=== PATIENT | male | born 1995 | race American Indian/Alaskan Native ===

== ENCOUNTER 2018-12-21 19:07 | Emergency (ER) | payer BC ==
[2018-12-21 19:15] VITALS: PULSE 68; RESP 16; TEMP 98.1; O2SAT 99
[2018-12-21 20:01] LABS: URINE BILIRUBIN NEGATIVE (NEGATIVE); URINE BLOOD NEGATIVE (NEGATIVE); URINE CLARITY Clear (Clear); URINE COLOR Yellow (YELLOW); URINE GLUCOSE (UA) NORMAL (Normal); URINE LEUKOCYTE ESTERASE TRACE Leu/uL (Negative); URINE PROTEIN NEGATIVE (NEGATIVE)
[2018-12-21] MEDS ORDERED: cefTRIAXone (Rocephin) 250 mg Inj IM STA (20:03)
--- NOTE | 2018-12-21 20:50 | C.PDOC ---
History Of Present Illness 23 year old male presents with frequency and dysuria intermittently for the past month. Patient was seen at another institution a few months ago and started on treatment for chlamydia but states he was noncompliant. Girlfriend is also in the ER being seen for similar symptoms, he reports positive Hx of unprotected sex. Denies abdominal pain, penile discharge, or penile lesions. Time Seen by Provider: 12/21/18 19:45 Chief Complaint (Nursing): Male Genitourinary History Per: Patient History/Exam Limitations: no limitations Onset/Duration Of Symptoms: Days, Intermittent Episodes Current Symptoms Are (Timing): Still Present Quality Of Discomfort: Unable To Describe Associated Symptoms: Urinary Symptoms. denies: Other (Abdominal pain, Penile discharge, Penile lesions) Alleviating Factors: None Recent travel outside of the [place]: No Past Medical History Reviewed: Historical Data, Nursing Documentation, Vital Signs Vital Signs: Last Vital Signs Temp 98.1 F 12/21/18 19:12 Pulse 68 12/21/18 19:12 Resp 16 12/21/18 19:12 BP Pulse Ox 99 12/21/18 19:12 Family History: States: Unknown Family Hx - Social History Hx Tobacco Use: Yes Hx Alcohol Use: Yes Hx Substance Use: No Review Of Systems Gastrointestinal: Negative for: Abdominal Pain Genitourinary: Positive for: Dysuria, Frequency. Negative for: Penile Discharge, Penile Pain Physical Exam - Physical Exam Appears: Non-toxic Skin: Normal Color, Warm Head: Atraumatic, Normacephalic Eye(s): bilateral: Normal Inspection Oral Mucosa: Moist Gastrointestinal/Abdominal: Soft, No Tenderness Back: No CVA Tenderness Male Genital: Other (deferred ( refusing exam)) Neurological/Psych: Oriented x3, Normal Speech ED Course And Treatment - Laboratory Results Lab Results: Urine Color Yellow (YELLOW) 12/21/18 19:50 Urine Clarity Clear (Clear) 12/21/18 19:50 Urine pH 6.0 (5.0-8.0) 12/21/18 19:50 Ur Specific [place] 1.016 (1.003-1.030) 12/21/18 19:50 Urine Protein Negative mg/dL (NEGATIVE) 12/21/18 19:50 Urine Glucose (UA) Normal mg/dL (Normal) 12/21/18 19:50 Urine Ketones Negative mg/dL (NEGATIVE) 12/21/18 19:50 Urine Blood Negative (NEGATIVE) 12/21/18 19:50 Urine Nitrate Negative (NEGATIVE) 12/21/18 19:50 Urine Bilirubin Negative (NEGATIVE) 12/21/18 19:50 Urine Urobilinogen 2.0 mg/dL (0.2-1.0) 12/21/18 19:50 Ur Leukocyte Esterase Trace Reyes/uL (Negative) 12/21/18 19:50 Urine WBC (Auto) 14 /hpf (0-5) H 12/21/18 19:50 Urine RBC (Auto) < 1 /hpf (0-3) 12/21/18 19:50 O2 Sat by Pulse Oximetry: 99 (room air) Pulse Ox Interpretation: Normal Progress Note: GC/Chlamydia sent. Patient treated prophylactically with zithromax, rocephin, and flagyl, advised to practice safe sex and follow up with clinic for further evaluation. Disposition Counseled Patient/Family Regarding: Diagnosis, Need For Followup, Rx Given - Disposition Referrals: 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 - Scribe Statement The provider has reviewed the documentation as recorded by the Scribe Ricardo Larson All medical record entries made by the Scribe were at my direction and personally dictated by me. I have reviewed the chart and agree that the record accurately reflects my personal performance of the history, physical exam, me dical decision making, and the department course for this patient. I have also personally directed, reviewed, and agree with the discharge instructions and disposition.
== END 2018-12-21 20:53 | disposition home or self-care (01) ==
LOC: C.ER 19:07
DX: N34.2 Other urethritis (principal)
CPT/HCPCS: 81001; 87491; 87591; 96372; 99283; J0696